=== PATIENT | male | born 1970 | race Caucasian/White ===

== ENCOUNTER 2019-01-19 14:24 | Emergency (ER) | payer BC, OTHER ==
--- NOTE | 2019-01-19 17:17 | ED ---
GI/ HPI - HPI Summary HPI Summary: 48 yo male presents to [facility] [place] [facility] with left inguinal pain and testicular pain since yesterday. 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 Yesterday he noticed some left groin pain and thought he may have pulled a muscle, but denies specific injury. Today pain has significantly worsened to left groin and left testicle and is accompanied by some nausea. His last BM was yesterday and was normal. He is urinating well without pain or difficulty. He denies fever, abdominal pain, vomiting, diarrhea, dysuria, or back pain. - History of Current Complaint Chief Complaint: EDAbdPain Time Seen by Provider: 01/19/19 17:16 Stated Complaint: "HERNIA IN GROIN PER PT" Hx Obtained From: Patient Severity: Moderate Current Severity: Moderate Pain Intensity: 7 Additional Locations for Males: Testicles - Allergy/Home Medications Allergies/Adverse Reactions: Allergies Allergy/AdvReac Type Severity Reaction Status Date / Time No Known Allergies Allergy Verified 01/19/19 14:35 PMH/Surg Hx/FS Hx/Imm Hx Endocrine/Hematology History: Denies: Hx Diabetes, Hx Thyroid Disease Cardiovascular History: Denies: Hx Hypertension Respiratory History: Denies: Hx Asthma, Hx Chronic Obstructive Pulmonary Disease (COPD) GI History: Denies: Hx Ulcer Psychiatric History: Denies: Hx Anxiety, Hx Depression, Hx Schizophrenia, Hx Bipolar Disorder - Surgical History Surgery Procedure, Year, and Place: Hernia ~ 1999 - Immunization History Date of Influenza Vaccine: Did not recieve flu vaccination this past season Infectious Disease History: No Infectious Disease History: Denies: Hx Hepatitis, Hx Human Immunodeficiency Virus (HIV), History Other Infectious Disease, Traveled Outside the [place] in Last 30 Days - Family History Known Family History: Positive: None - Social History Alcohol Use: Daily Alcohol Amount: 1 beer/day Substance Use Type: Reports: None, Other Substance Use Comment - Amount & Last Used: chews tobacco Smoking Status (MU): Never Smoked Tobacco Amount Used/How Often: light to moderate Review of Systems Constitutional: Negative Cardiovascular: Negative Respiratory: Negative Gastrointestinal: Negative Positive: see HPI Musculoskeletal: Negative Skin: Negative Neurological: Negative Psychological: Normal All Other Systems Reviewed And Are Negative: Yes Physical Exam - Summary Physical Exam Summary: GENERAL: NAD. WDWN. No pain distress. SKIN: No rashes, sores, lesions, or open wounds. NECK: Supple. Nontender. No lymphadenopathy. CHEST: CTAB. No r/r/w. No accessory muscle use. Breathing comfortably and in no distress. CV: RRR. Without m/r/g. Pulses intact. Cap refill <2seconds ABDOMEN: Soft. NTTP. No distention or guarding. Bowel sounds present : Moderate TTP at left testicle and mild about right testicle. Severe TTP about left spermatic cord. No appreciable direct or indirect hernia. No inguinal LAD. No penile tenderness or discharge. NEURO: Alert. PSYCH: Age appropriate behavior. Triage Information Reviewed: Yes Vital Signs On Initial Exam: Initial Vitals Temp Pulse Resp BP Pulse Ox 98.2 F 59 14 112/78 99 01/19/19 14:31 01/19/19 14:31 01/19/19 14:31 01/19/19 14:31 01/19/19 14:31 Vital Signs Reviewed: Yes Diagnostics - Vital Signs Vital Signs Temp Pulse Resp BP Pulse Ox 01/19/19 15:37 99.2 F 59 16 110/86 97 01/19/19 14:31 98.2 F 59 14 112/78 99 - Laboratory Lab Statement: Any lab studies that have been ordered have been reviewed, and results considered in the medical decision making process. GIGU Course/Dx - Course Course Of Treatment: US: IMPRESSION: Indirect fat and bowel containing reducible left inguinal hernia. UA negative. Indirect inguinal hernia that is completely reducible. In the ED pt was given percocet po and morphine IV for his discomfort and had significant improvement of his pain. Discussed results with pt and will dc him with referral to general surgery. Advised to take tylenol/ibuprofen as directed for pain and take norco for breakthrough pain. Avoid heavy lifting and straining during BM as this may worsen pain. Return to ED for worsening symptoms or development of vomiting or fever. - Diagnoses Provider Diagnoses: Indirect inguinal hernia Discharge - Sign-Out/Discharge Documenting (check all that apply): Patient Departure Patient Received Moderate/Deep Sedation with Procedure: No - Discharge Plan Condition: Stable Disposition: HOME Prescriptions: HYDROcodone/ACETAMIN 5-325 MG* [[place] 5-325 TAB*] 1 tab PO Q6H PRN #12 tab MDD 4 PRN Reason: Pain Patient Education Materials: Inguinal Hernia (ED) Referrals: Hilda Hawthorne MD [Primary Care Provider] - Mara Hemphill MD [Medical Doctor] - As Soon As Possible Additional Instructions: If you develop a fever, shortness of breath, chest pain, new or worsening symptoms - please call your PCP or go to the ED immediately. Your ultrasound today revealed a hernia that is reducible - this is a good sign. This area may be painful. I recommend you refrain from heavy lifting >10lbs. Please call the Surgeon's office at the number below to schedule a follow up appointment within 1-2 weeks for a recheck. - Billing Disposition and Condition Condition: STABLE Disposition: Home
[2019-01-19] MEDS ORDERED: oxyCODONE/Acetamin 5/325 MG* TAB PO ONE (17:43)
[2019-01-19 18:05] LABS: Urine Appearance Clear; Urine Bilirubin Negative (Negative); Urine Blood Negative (Negative); Urine Color Yellow; Urine Glucose Negative (Negative); Urine Ketones Negative (Negative); Urine Nitrite Negative (Negative); Urine Protein Negative (Negative); Urine Specific Gravity 1.021 (1.010-1.030); Urine Urobilinogen Negative (Negative)
[2019-01-19] MEDS ORDERED: Morphine 4 MG/ML VIAL (1 ml) 4 MG/ML VIAL IV ONE (18:41)
[2019-01-19 20:30] VITALS: BP 112/76
== END 2019-01-19 20:30 | disposition home or self-care (01) ==
LOC: ED 14:24
DX: K40.90 Unilateral inguinal hernia, without obstruction or gangrene, not specified as recurrent (principal); F17.220 Nicotine dependence, chewing tobacco, uncomplicated
CPT/HCPCS: 81003; 96374; 99283; A9270-GY; J2270

== ENCOUNTER 2019-02-01 13:24 | Day surgery (SDC) | payer BC ==
--- NOTE | 2019-01-29 14:36 | HP ---
Amended report to enter cosigning physician. CC: Dr. [facility], [facility]; Dr. Hilda Hawthorne* PREOPERATIVE HISTORY AND PHYSICAL: DATE OF ADMISSION/SURGERY: 02/01/19 This patient is scheduled for same-day surgery admission by Dr. Nicolas on 02/01/19. ATTENDING PHYSICIAN: Dr. Kenji Nicolas* (dictated by Miriam Rosales NP). CHIEF COMPLAINT: Left inguinal bulge. HISTORY OF PRESENT ILLNESS: The patient is a 48-year-old male who presented to [facility] on 01/22/19 with a reducible left inguinal hernia. He was recently lifting heavy planks and suddenly developed lower abdominal wall and groin pain, which was greater on the left side. The pain worsened and he went to the [facility] Emergency Room on 01/19/19 for evaluation. An ultrasound was obtained that showed a fat and bowel containing fully reducible left inguinal hernia. He was given pain medication and was discharged home with followup with Surgery. He denies any associated gastrointestinal or genitourinary complaints. Today, 01/29/19, he returned to meet Dr. Nicolas; he initially had seen Dr. Hemphill but she was going to be out of town and he would like to have his surgery sooner and was subsequently referred to Dr. Nicolas for laparoscopic left inguinal hernia repair with mesh on 02/01/19. Today, he states that he has an uncomfortable bulge in the left groin but is feeling somewhat better and has not required any opioid medication. Dr. Nicolas examined the patient and noted a slight bulge in the left groin on standing and on exam of the inguinal canal, there is a tender, almost completely reducible left inguinal hernia and no testicular masses noted. Dr. Nicolas discussed the nature of the surgical procedure, the rationale for the procedure, the relevant risks and benefits and today I reviewed the expected postoperative care and recovery. The patient has had a chance to ask questions and stated that he understands the information and is satisfied with the answers given to his questions. He will sign surgical consent on the day of surgery. PAST MEDICAL HISTORY: Generally healthy. No acute or chronic conditions; there is a possibility of a pseudocholinesterase deficiency. PAST SURGICAL HISTORY: Right inguinal hernia repair approximately 10 years ago at [place]; arthroscopic knee surgery around 1989 in [place]; he does not remember the type of anesthesia for either procedure but states that he was told that he had a long postanesthesia recovery. MEDICATIONS: Naproxen DR 500 mg 1 tablet p.o. b.i.d. p.r.n. ALLERGIES: No known drug allergies. FAMILY HISTORY: Positive for a first cousin with pseudocholinesterase deficiency, who by the patient's report underwent surgery and had respiratory distress post anesthesia; the patient states that this was a maternal first cousin; he states that he does not think his mother was ever tested for the pseudocholinesterase deficiency; patient's mother is alive with a history of hypercholesterolemia. The patient's father is alive with a history of hypertension. There is also a family history of diabetes and heart disease. SOCIAL HISTORY: He is and is a php consultant. He has never smoked but he is currently a smokeless tobacco user of one half can per day. He consumes one beer per day and exercises routinely. REVIEW OF SYSTEMS: Constitutional: No fevers, chills, excessive fatigue, or weight loss. ENMT: Denies ears symptoms, nasal symptoms, mouth or throat symptoms. Cardiovascular: Denies chest pain, pressure, heart attack, or rheumatic fever. Respiratory: Denies shortness of breath, wheezing, or hemoptysis. Gastrointestinal: No nausea, vomiting, diarrhea, GI bleeding or constipation. No change in bowel habits. Genitourinary: No change in urinary habits. No dysuria or hematuria. Musculoskeletal: Denies joint or back pain or history of arthritis. Integumentary: Denies skin, hair, or nail symptoms. Neurologic: No blurred vision or headache. No history of seizure activity or concussion. Endocrine: No diabetes or thyroid disease. Hematologic: No easy bruising or bleeding; he has never received a blood transfusion. General: He has a family history of pseudocholinesterase deficiency and states that around the time of his knee surgery in 1989, he was tested and was told he was "borderline" for the pseudocholinesterase deficiency. He does not recall the type of anesthesia that he had for either of his surgical procedures, but was told that he had a long post anesthesia recovery. PHYSICAL EXAMINATION GENERAL SURVEY: The patient is a 48-year-old male, well developed, well nourished, in no acute distress. VITAL SIGNS: Height 70 inches, weight 183 pounds, body mass index 26.3. Blood pressure 112/76, pulse 66 and regular, respiratory rate 16, temperature 97.6 tympanic. HEENT: Benign. NECK: Supple. No cervical lymphadenopathy. No thyromegaly. BACK: No CVA tenderness. LUNGS: Breath sounds bilaterally clear and equal. HEART: Regular rate and rhythm. No murmurs or rubs appreciated. ABDOMEN: Active bowel sounds. Soft, nondistended, nontender throughout. No obvious masses, organomegaly, or evidence of ventral hernia. Well-healed right oblique groin incision without recurrent hernia. Inguinal exam done by Dr. Nicolas revealed a slight bulge visually in the left groin while the patient was standing; on exam of the inguinal canal, there was a tender, almost completely reducible left inguinal hernia; no testicular masses noted. No scrotal enlargement. EXTREMITIES: Warm and well perfused. No edema. No skin ulcerations. NEUROLOGIC: Alert and oriented x3. Steady gait. SKIN: Warm, dry, intact. IMPRESSION: 1. Left inguinal hernia, tender and reducible. 2. History of pseudocholinesterase deficiency in the family. PLAN: Same-day surgery admission on 02/01/[address] Nicolas's service for laparoscopic left inguinal hernia repair with mesh; Dr. Nicolas discussed the family history of pseudocholinesterase deficiency with Dr. Nathan from Anesthesia and Dr. Nathan indicated that it is okay to proceed with the surgery as long as everyone is aware of this possible issue and the use of appropriate anesthetic agent. KIRSTIE ROSALES NP [id number]/[facility] #: [id number] LILI
[~2019-02-01 13:24] MED LIST: Buffered Lidocaine 1% SYRIN* 1 ML/SYRINGE INTRADERM ONE; Dexamethasone IV* 4 MG/ML 1 ML (4 MG) IV SLOW PU ONE; Famotidine IV* 10 MG/ML 2 ML (20 mg) IV ONE; Lactated Ringers 1000 ML Bag* 1,000 ML IV SCH
[2019-02-01] MEDS ORDERED: Famotidine IV* 10 MG/ML 2 ML (20 mg) ONE (13:52)
[2019-02-01] MEDS ORDERED: Dexamethasone IV* 4 MG/ML 1 ML (4 MG) ONE (13:52)
[2019-02-01] MEDS ORDERED: Buffered Lidocaine 1% SYRIN* 1 ML/SYRINGE INTRADERM ONE (13:52)
[2019-02-01] MEDS ORDERED: ceFAZolin 2 GM in NS PREMIX(*) 2 GM/100 ML BAG IVPB ONE (13:52)
[2019-02-01] MEDS ORDERED: Lidocaine 2% PF * 5 ML VIAL ONE (14:15)
[2019-02-01] MEDS ORDERED: Midazolam* 1 MG/ML 5 ML VIAL (5 MG) ONE (14:15)
[2019-02-01] MEDS ORDERED: fentaNYL* 50 MCG/ML 2 ML VIAL (100 MCG VIAL) ONE ×2 (14:15→17:25)
[2019-02-01] MEDS ORDERED: Propofol* 10 MG/ML 20 ML BTL ONE (14:15)
[2019-02-01] MEDS ORDERED: Bupivacaine 0.25% W/EPI* 10 ML SDV ONE (14:42)
[2019-02-01] MEDS ORDERED: Rocuronium* 10 MG/ML VIAL ONE (15:00)
[2019-02-01] MEDS ORDERED: Ketorolac INJ* 30 MG/ML 1 ML VIAL ONE (15:14)
[2019-02-01] MEDS ORDERED: DiMENhydriNATE IV* 50 MG/ML VIAL IV PUSH PRN (15:31)
[2019-02-01] MEDS ORDERED: Naloxone* 0.4 MG/ML 1 ML VIAL IV PRN (15:31)
[2019-02-01] MEDS ORDERED: oxyCODONE/Acetamin 5/325 MG* TAB PO PRN (15:31)
[2019-02-01] MEDS ORDERED: HYDROcodone/ACETAMIN 5-325 MG* 1 TAB PO PRN (15:31)
[2019-02-01] MEDS ORDERED: Ondansetron INJ* 2 MG/ML VIAL ONE (16:06)
[2019-02-01] MEDS ORDERED: Sugammadex * 200 MG/2 ML VIAL IV PUSH ONE (16:18)
--- NOTE | 2019-02-01 16:31 | OP ---
Operative Report - Blank - Operative Report Date of Operation: 02/01/19 Note: Brief Operative Note Preop Dx: Left Inguinal Hernia Postop Dx: same, direct Procedure: Laparoscopic repair LIH w/ mesh (Progrip) Anesthesia: GET Surgeon: Maria Isabel Carpenter Helper Hardwood Flooring: JORGE ALBERTO Oseguera Fluids: 1100 ml RL EBL: none Specimen: none Drains: none Findings: dictated
[2019-02-01] MEDS ORDERED: HYDROcodone/ACETAMIN 5-325 MG* 1 TAB ONE (17:25)
[2019-02-01] MEDS: fentaNYL* 50 MCG/ML 2 ML VIAL (100 MCG VIAL) IV PRN ×2 (17:26→17:38)
[2019-02-01] MEDS ORDERED: oxyCODONE/Acetamin 5/325 MG* TAB ONE (19:07)
[2019-02-01 19:23] VITALS: BP 108/72
--- NOTE | 2019-02-01 22:23 | OP ---
DATE OF OPERATION: 02/01/19 - [facility] DATE OF : 74 SURGEON: Kenji Nicolas MD [employer] SUPERVISOR: JORGE ALBERTO Moreno ANESTHESIOLOGIST: oDrota Bansal MD ANESTHESIA: General with local. PRE-OPERATIVE DIAGNOSIS: Left inguinal hernia. POST-OPERATIVE DIAGNOSIS: Left direct inguinal hernia. OPERATIVE PROCEDURE: Total extraperitoneal laparoscopic repair of a direct inguinal hernia using mesh. ESTIMATED BLOOD LOSS: Minimal. IV FLUIDS: 1 L of crystalloids. SPECIMEN: None. WOUND CLASSIFICATION: 1. DRAINS: None. COMPLICATIONS: None. DESCRIPTION OF PROCEDURE: Written informed consent was obtained. The left groin was marked with indelible ink and preoperative antibiotics were administered. The patient was taken to the operating room and placed in the supine position. Sequential compression devices and a warming blanket were applied. General anesthesia was administered and a Duke catheter was inserted. The abdomen and both groins were prepped and draped in the usual sterile fashion. Time-out verification was completed. Initially, a small transverse incision was made just below the umbilicus, just slightly to the left of midline and the anterior rectus sheath in the left was identified and divided transversely. The left rectus muscle was retracted laterally to expose the posterior sheath and the retrorectal space was developed using a Fior clamp. The Spacemaker balloon was then inserted and passed without difficulty down to the pubic tubercle using palpation. Under direct vision, the 10-mm camera, the inflation balloon was insufflated with about 15 squeezes of the bulb to expose the extraperitoneal space. Next, the balloon was removed and a 12-mm blunt port was inserted and the extraperitoneal space was insufflated to 12 mmHg and the patient was placed in Trendelenburg position. Under direct vision, two 5-mm ports were placed in the midline below the initial 12- mm port. The dissection was commenced at the midline. The pubic tubercle and some of the right Jimenez's ligament was identified. We then dissected laterally on the left following Jimenez's ligament. Here it was apparent that there was a moderate-sized direct space hernia with the pseudosac, which was reduced back into the hernia. The epigastric vessels were identified and protected from injury throughout. Laterally, the iliopubic tract was followed to the iliac crest. We carefully identified the reflection of the peritoneum lateral to medial and there was no evidence of an indirect hernia sac and noted no other abnormalities on spermatic cord. The vas deferens was also identified and protected from injury. With this finding of only a direct space hernia, a 10-cm x 15-cm Bard soft gripping mesh was then folded appropriately and passed into the extraperitoneal space. It was unfolded and placed directly over the direct and indirect spaces with generous coverage including crossing the midline to the right slightly. No wrinkling or folding was noted. No clips or tacks were used to secure the mesh. Hemostasis was assured. Under direct vision, the insufflation was reduced and the mesh held in place to prevent wrinkling. All ports were then removed. The anterior rectus fascia was closed with interrupted 0-Vicryl suture. The skin at all three incisions was approximated with subcuticular 4-0 Vicryl suture. Steri-Strips were applied. The patient tolerated the procedure well, was taken to recovery room in stable condition. [id number]/[facility] #: [id number] LILI
== END 2019-02-01 19:26 | disposition home or self-care (01) ==
LOC: OR 13:24
PROVIDERS: ATTEND Surgery
DX: K40.90 Unilateral inguinal hernia, without obstruction or gangrene, not specified as recurrent (principal); Z72.0 Tobacco use
CPT/HCPCS: A9270-GY; C1781; J0690; J1100; J1885; J2250; J2405; J2704; J3010

== ENCOUNTER 2019-07-09 15:07 | Emergency (ER) | payer BC ==
[2019-07-09] MEDS ORDERED: Tetan/Diph/Pertus SYR(Tdap)* 0.5 ML SYR(BOOSTRIX) use SYR contains LATEX IM ONE (15:19)
[2019-07-09] MEDS ORDERED: Cephalexin CAP* 500 MG PO ONE (15:30)
[2019-07-09] MEDS ORDERED: Lidocaine 1% MPF ** 5 ML VIAL INJ ONE (15:38)
--- NOTE | 2019-07-09 15:42 | ED ---
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 He states he has 5 out of 10 pain to his right hand at the laceration. He states he did not clean the wound prior to arrival and there were no foreign bodies. He states there was a significant amount of bleeding initially but is currently controlled with pressure. denies anticoagulant use. He endorses full range of motion and strength in both extremities and states he has full sensation. Denies fever, chest pain, abdominal pain, pain with urination. Pt states he does not recall when his last tetanus immunization was but states it was "a long time ago" - History of Current Complaint Stated Complaint: RT HAND INJURY PER PT Time Seen by Provider: 07/09/19 15:19 Hx Obtained From: Patient, Family/Corporation Officer - Onset/Duration: Sudden Onset Aggravating: Movement Alleviating: Compression Timing: Constant Onset Severity: Severe Current Severity: Severe Pain Intensity: 7 Pain Scale Used: 0-10 Numeric Associated Signs & Symptoms: Pain - Allergy/Home Medications Allergies/Adverse Reactions: Allergies Allergy/AdvReac Type Severity Reaction Status Date / Time No Known Allergies Allergy Verified 07/09/19 15:18 PMH/Surg Hx/FS Hx/Imm Hx Endocrine/Hematology History: Denies: Hx Diabetes, Hx Thyroid Disease Cardiovascular History: Denies: Hx Hypertension, Other Cardiovascular Problems/Disorders Respiratory History: Denies: Hx Asthma, Hx Chronic Obstructive Pulmonary Disease (COPD), Other Respiratory Problems/Disorders GI History: Denies: Hx Ulcer, Other GI Disorders Musculoskeletal History: Reports: Hx Bursitis - right hip Sensory History: Denies: Hx Contacts or Glasses, Hx Hearing Aid Opthamlomology History: Denies: Hx Contacts or Glasses Neurological History: Reports: Hx Headaches, Hx Migraine Denies: Other Neuro Impairments/Disorders Psychiatric History: Denies: Hx Anxiety, Hx Depression, Hx Schizophrenia, Hx Bipolar Disorder - Surgical History Surgery Procedure, Year, and Place: Hernia ~ 2006, [facility]. right knee arthroscopy, 1989 Hx Anesthesia Reactions: No - Immunization History Date of Tetanus Vaccine: unknown Date of Influenza Vaccine: Did not recieve flu vaccination this past season Immunizations Up to Date: Yes Infectious Disease History: No Infectious Disease History: Denies: Hx Hepatitis, Hx Human Immunodeficiency Virus (HIV), History Other Infectious Disease, Traveled Outside the [place] in Last 30 Days - Family History Known Family History: Positive: None - Social History Alcohol Use: Daily Alcohol Amount: 1 beer/day Substance Use Type: Reports: None Substance Use Comment - Amount & Last Used: chews tobacco Smoking Status (MU): Never Smoked Tobacco Amount Used/How Often: light to moderate Review of Systems Constitutional: Negative Eyes: Negative ENT: Negative Cardiovascular: Negative Respiratory: Negative Gastrointestinal: Negative Genitourinary: Negative Musculoskeletal: Negative Skin: Negative Neurological: Negative Psychological: Normal All Other Systems Reviewed And Are Negative: Yes Physical Exam - Summary Physical Exam Summary: There is a 10 cm stellate avulsion laceration with uneven borders to the anterior dorsal aspect of the right hand tracing from the base of the first digit [place] to the second digit. Laceration is approximately 1 cm deep and one similar wide. There is significant bleeding from the laceration with signs of small arterial bleeding. There is no evidence of tendon damage or involvement. He is neurovascularly intact both prior and after laceration repair. Motor function of median, ulnar, radial nerves were intact. Patient has full range of motion and strength in his hands bilaterally. Triage Information Reviewed: Yes Vital Signs On Initial Exam: Initial Vitals Temp Pulse Resp BP Pulse Ox 98.6 F 70 20 135/83 98 07/09/19 15:14 07/09/19 15:14 07/09/19 15:14 07/09/19 15:14 07/09/19 15:14 Vital Signs Reviewed: Yes Appearance: Positive: No Pain Distress, Well-Nourished, Pain Distress, Signs of Trauma Skin: Positive: Warm, Skin Color Reflects Adequate Perfusion Head/Face: Positive: Normal Head/Face Inspection Eyes: Positive: EOMI, RUTH ENT: Positive: Hearing grossly normal Respiratory/Lung Sounds: Positive: Clear to Auscultation, Breath Sounds Present Cardiovascular: Positive: RRR, S1, S2 Abdomen Description: Positive: Nontender Bowel Sounds: Positive: Present Musculoskeletal: Positive: Strength/ROM Intact, Pain @ - Right hand near laceration Neurological: Positive: Sensory/Motor Intact, Alert, Oriented to Person Place, Time, Normal Gait, Speech Normal. Negative: Slurred Speech Psychiatric: Positive: Anxious, Other - Patient appears nauseated, but otherwise hemodynamically stable. AVPU Assessment: Alert Procedures - Sedation Patient Received Moderate/Deep Sedation with Procedure: No - Laceration/Wound Repair 1 Location: upper extremity - Right hand on the dorsal lateral aspect the base of the first digit midway to the second digit. Description: Irregular Anesthesia: Local, 1.0%, Lido Length, Depth and Shape: 10 cm in length by 1 cm in depth by 1 cm in width. Betadine Prep?: No Irrigated w/ Saline (ccs): 500 Laceration/Wound Explored: clean, no foreign body removed Closure: Single Layer Debridement: moderate Suture Type: Nylon - 4-0 Number of Sutures: 15 - 6 horizontal mattress and 9 simple interrupted Layer Closure?: No Sterile Dressing Applied?: No - Dressing applied. Diagnostics - Vital Signs Vital Signs Temp Pulse Resp BP Pulse Ox 07/09/19 15:14 98.6 F 70 20 135/83 98 - Laboratory Lab Statement: Any lab studies that have been ordered have been reviewed, and results considered in the medical decision making process. Laceration Repair Course/Dx - Course Course Of Treatment: The patient was evaluated in the emergency department today for a laceration to his right hand. Patient was seen and evaluated. There appeared to be no involvement of tendon and he was neurovascularly intact. Verbal consent and timeout was obtained prior to laceration repair. The indications, risks, benefits were splint to the patient. The area was prepped and draped in sterile fashion. Using local technique 10 cc of 1% lidocaine without epinephrine was injected into the margins of the wound. Due to the nature of the wound mild debridement was necessary for approximation of skin flaps. Repair was done using 4-0 Prolene. 6 horizontal mattress sutures were used for approximation of the skin edges as well as 9 simple interrupted sutures making 15 sutures in total for the repair of this wound. His laceration was repaired with 50cc of blood loss. Hemostasis was achieved. Pt tolerated the procedure well. After laceration repair, a cock up splint was applied to encourage wound healing. he is given an updated tetanus vaccination as well as 1 dose of 500 mg Keflex here in the emergency department. A prescription for a seven-day course of Keflex was sent to pharmacy to be taken one 500 mg tablet every 6 hours. He was told to follow-up with orthopedics tomorrow for further evaluation and management of his wound. He was given suture care instructions and wound care directions. He was told to return to the emergency department immediately if he developed any new or worsening symptoms. Patient with this plan. - Differential Dx Differental Diagnoses: Avulsion, Laceration, Tendon Laceration - Clinical Impression Provider Diagnoses: Laceration of right hand, complicated Discharge ED - Sign-Out/Discharge Documenting (check all that apply): Patient Departure - Discharge Plan Condition: Stable Disposition: HOME Prescriptions: Cephalexin CAP* [Keflex CAP*] 500 mg PO QID #28 cap Patient Education Materials: Care For Your Stitches (ED), Laceration (ED) Referrals: Hilda Hawthorne MD [Primary Care Provider] - Victoriano Llanos MD [Medical Doctor] - 1 Day Additional Instructions: You were seen in the emergency department today due to a laceration to your right hand. Your laceration was closed using 15 stitches. Please follow up with orthopedics tomorrow for further evaluation and management of your wound. I've attached information on how to care for your stitches. You are to follow up in 10 days with you primary care provider, or this emergency department for your sutures to be removed and to have your wound checked. Keep your wound and bandage dry for 24 hours. After 24 hours you may remove the bandage and gently clean the wound with warm soap and water. After cleaning pat the wound dry. Do this daily until complete healing of the wound. To facilitate wound healing be sure to remove any crusts to your wound and then apply ointment to the wound prior to bandage placement. After closure of the wound apply sunscreen to reduce scarring and protect your skin. If you notice any signs of infection including large areas of redness around the wound, red streaking from the wound , foul smelling or purulent drainage, or dehistance please return to the emergency department immediately. - Billing Disposition and Condition Condition: STABLE Disposition: Home - Attestation Statements Provider Attestation: I was available for consult. This patient was seen by the [facility]. The patient was not presented to, seen by, or examined by me. Frank Chauhan MD
[2019-07-09 17:48] VITALS: BP 116/87
== END 2019-07-09 17:55 | disposition home or self-care (01) ==
LOC: ED 15:07
DX: S61.411A Laceration without foreign body of right hand, initial encounter (principal); W31.2XXA Contact with powered woodworking and forming machines, initial encounter; Y92.9 Unspecified place or not applicable; Z23 Encounter for immunization
CPT/HCPCS: 12004; 90471; 90715; 99282; A9270-GY